=== PATIENT | female | born 2000 | race Caucasian/White ===

== ENCOUNTER 2021-07-09 05:25 | Emergency (ER) | payer SELFPAY ==
--- OUTSIDE RECORDS SUMMARY | 2021-07-09 05:28 | XMS REPORT | Continuity of Care Document ---
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 gt [facility]2020-10-11 22:54:00 Test Item Value Reference Range Interpretation Comments Glucose Lvl (test code = Glucose Lvl) 88 70-99 [place] [id number] 22:54:00 Test Item Value Reference Range Interpretation Comments BUN (test code = BUN) 9 7-22 [place] [id number] 22:54:00 Test Item Value Reference Range Interpretation Comments Creatinine Lvl (test code = Creatinine 0.84 0.50-1.40 Lvl) [facility]2020-10-11 22:54:00 Test Item Value Reference Range Interpretation Comments Sodium Lvl (test code = Sodium Lvl) 136 135-145 [facility]2020-10-11 22:54:00 Test Item Value Reference Range Interpretation Comments Potassium Lvl (test code = Potassium 3.7 3.5-5.1 Lvl) [facility]2020-10-11 22:54:00 Test Item Value Reference Range Interpretation Comments Chloride Lvl (test code = Chloride Lvl) 107 95-109 [facility]2020-10-11 22:54:00 Test Item Value Reference Range Interpretation Comments CO2 (test code = CO2) 24 24-32 [facility]2020-10-11 22:54:00 Test Item Value Reference Range Interpretation Comments Calcium Lvl (test code = Calcium Lvl) 9.8 8.5-10.5 [facility]
[2021-07-09 06:26] LABS: Urine Glucose Negative (Negative); Urine Specific Gravity >=1.030 (1.005-1.030)
[2021-07-09 06:27] LABS: Urine Blood Negative (Negative); Urine Protein Negative (Negative)
[2021-07-09 06:51] LABS: SARS-COV-2 RT PCR NEGATIVE (NEGATIVE)
--- NOTE | 2021-07-09 07:25 | EDPHYS ---
Physician Documentation [facility] Name: Romelia Patel Age: 20 yrs Sex: Female : 2000 Arrival Date: 07/09/2021 Time: 05:27 Bed 8 Private MD: ED Physician Pepe Solis HPI: 07/09 07:17 This 20 yrs old Female presents to ER via Ambulatory with complaints of Sore Throat, kdr Fever. 07:17 The patient presents with sore throat, Patient also complains of a tender lesion in her kdr perineum. The patient describes throat pain as intermittent. Onset: The symptoms/episode began/occurred gradually, 1 week(s) ago. Severity of symptoms: At their worst the symptoms were mild, in the emergency department the symptoms are unchanged. Modifying factors: The symptoms are alleviated by nothing, the symptoms are aggravated by nothing. Associated signs and symptoms: The patient has no apparent associated signs or symptoms. The patient has not recently seen a physician. Patient is concerned that she may have been exposed to HPV or some other STD. Reports that a relationship her mother had which she subsequently evaluated (her mother had a lesion on her back) as given her concern for possible genital HPV. Patient is sexually active and is also concerned that this may be something that was transmitted to her via her boyfriend. In any case the patient is concerned that she may have an STD or some other patient.. Historical: - Allergies: 06:00 No Known Allergies; kd3 - Home Meds: 06:00 None [Active]; kd3 - PMHx: 06:00 None; kd3 - PSHx: 06:00 None; kd3 - Immunization history:: Adult Immunizations not up to date, Client reports having NOT received the Covid vaccine. Flu vaccine is not up to date. - Social history:: Smoking status: unknown. ROS: 07:17 Constitutional: Negative for fever, chills, and weight loss, Eyes: Negative for injury, kdr pain, redness, and discharge, Neck: Negative for injury, pain, and swelling, Cardiovascular: Negative for chest pain, palpitations, and edema, Respiratory: Negative for shortness of breath, cough, wheezing, and pleuritic chest pain, Abdomen/GI: Negative for abdominal pain, nausea, vomiting, diarrhea, and constipation, Back: Negative for injury and pain, : Negative for injury, bleeding, discharge, and swelling, MS/Extremity: Negative for injury and deformity, Neuro: Negative for headache, weakness, numbness, tingling, and seizure activity. Psych: Negative for depression, anxiety, suicide ideation, homicidal ideation, and hallucinations, Allergy/Immunology: Negative for hives, rash, and allergies, Endocrine: Negative for neck swelling, polydipsia, polyuria, polyphagia, and marked weight changes, Hematologic/Lymphatic: Negative for swollen nodes, abnormal bleeding, and unusual bruising. 07:17 ENT: Positive for difficulty swallowing, Negative for injury or acute deformity, Gum pain hearing loss, pulling at ears, Teeth pain tinnitus, rhinorrhea, sinus congestion. 07:17 Skin: Positive for A lesion in her labial/perineum area. Exam: 07:17 Constitutional: This is a well developed, well nourished patient who is awake, alert, kdr and in no acute distress. Head/Face: Normocephalic, atraumatic. Eyes: Pupils equal round and reactive to light, extra-ocular motions intact. Lids and lashes normal. Conjunctiva and sclera are non-icteric and not injected. Cornea within normal limits. Periorbital areas with no swelling, redness, or edema. Neck: Trachea midline, no thyromegaly or masses palpated, and no cervical lymphadenopathy. Supple, full range of motion without nuchal rigidity, or vertebral point tenderness. No Meningismus. Chest/axilla: Normal chest wall appearance and motion. Nontender with no deformity. No lesions are appreciated. Cardiovascular: Regular rate and rhythm with a normal S1 and S2. No gallops, murmurs, or rubs. Normal PMI, no JVD. No pulse deficits. Respiratory: Lungs have equal breath sounds bilaterally, clear to auscultation and percussion. No rales, rhonchi or wheezes noted. No increased work of breathing, no retractions or nasal flaring. Abdomen/GI: Soft, non-tender, with normal bowel sounds. No distension or tympany. No guarding or rebound. No evidence of tenderness throughout. Back: No spinal tenderness. No costovertebral tenderness. Full range of motion. MS/ Extremity: Pulses equal, no cyanosis. Neurovascular intact. Full, normal range of motion. Neuro: Awake and alert, GCS 15, oriented to person, place, time, and situation. Cranial nerves II-XII grossly intact. Motor strength 5/5 in all extremities. Sensory grossly intact. Cerebellar exam normal. Normal gait. Psych: Awake, alert, with orientation to person, place and time. Behavior, mood, and affect are within normal limits. 07:17 : Pelvic Exam: External exam: no appreciated Bartholin's cyst, no erythema, not excoriated, no evidence of foreign body, no lesions, no ulcerations, no warts seen, There is a small raised lesion that is suspected to be folliculitis. Otherwise there is no other lesion of concern. The speculum exam did not reveal any significant fluid collection or foul-smelling discharge. The patient tolerated well. Vital Signs: 05:55 BP 106 / 59; Pulse 89; Resp 16; Temp 98.5; Pulse Ox 100% on R/A; Weight 58.51 kg; kd3 Height 5 ft. 3 in. (160.02 cm); Pain 0/10; 05:55 Body Mass Index 22.85 (58.51 kg, 160.02 cm) kd3 MDM: 07:17 Data reviewed: vital signs, nurses notes, lab test result(s). Counseling: I had a kdr detailed discussion with the patient and/or guardian regarding: the historical points, exam findings, and any diagnostic results supporting the discharge/admit diagnosis, lab results, the need for outpatient follow up. 07:25 Patient medically screened. kdr 07/09 05:42 Order name: COVID-19/FLU A+B (Document "Date of Onset" if Symptomatic); Complete Time: vc1 07:19 07/09 05:42 Order name: Strep; Complete Time: 07:19 vc1 07/09 06:24 Order name: Throat Culture EDTX 07/09 06:25 Order name: Urine --Ancillary (enter results) cs9 07/09 06:27 Order name: Urine Dipstick-Ancillary; Complete Time: 07:19 EDMS 07/09 06:49 Order name: GC (GONORR/CHLAMYDIA) Probe vc1 07/09 06:49 Order name: Wet Prep vc1 Administered Medications: No medications were administered Disposition Summary: 07/09/21 07:25 Discharge Ordered Location: Home kdr Problem: new kdr Symptoms: have improved kdr Condition: Stable kdr Diagnosis - Pseudofolliculitis barbae kdr - Acute laryngopharyngitis kdr - Viral infection, unspecified kdr Followup: kdr - With: Private Physician - When: 2 - 3 days - Reason: If symptoms return, Further diagnostic work-up, Recheck today's complaints, Continuance of care, Re-evaluation by your physician Discharge Instructions: - Discharge Summary Sheet kdr - Pharyngitis kdr - Ingrown Hair kdr - Viral Respiratory Infection, [id number] kdr - Sore Throat, [id number] kdr Forms: - Medication Reconciliation Form kdr - Thank You Letter kdr Prescriptions: - Ibuprofen 600 mg Oral Tablet - take 1 tablet by ORAL route every 6 hours As needed take with food; 30 tablet; kdr Refills: 0, Product Selection Permitted Signatures: Dispatcher [employer] EDMS Pepe Solis MD MD kdr Bernardo Gaitan DO DO ms3 Deborah Perez, RN RN kd3
--- NOTE | 2021-07-09 07:25 | ER ---
Nurse's Notes [facility] Name: Romelia Patel Age: 20 yrs Sex: Female : 2000 Arrival Date: 07/09/2021 Time: 05:27 Bed 8 Private MD: Diagnosis: Pseudofolliculitis barbae;Acute laryngopharyngitis;Viral infection, unspecified Presentation: 07/09 05:55 Chief complaint: Patient states: pt states that she has a bump on her genital area. it kd3 is not open or blistered. 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 pt also states she has had nausea and fever with a sore throat starting 4 days ago. Coronavirus screen: Vaccine status: Patient reports being unvaccinated. Ebola Screen: No symptoms or risks identified at this time. Initial Sepsis Screen: Does the patient meet any 2 criteria? No. Patient's initial sepsis screen is negative. Does the patient have a suspected source of infection? No. Patient's initial sepsis screen is negative. Risk Assessment: Do you want to hurt yourself or someone else? Patient reports no desire to harm self or others. Onset of symptoms was July 06, 2021. 05:55 Method Of Arrival: Ambulatory kd3 05:55 Acuity: OC 3 kd3 Triage Assessment: 06:00 General: Appears in no apparent distress. Behavior is calm, cooperative. Pain: Denies kd3 pain. EENT: Reports pain in throat. Neuro: Level of Consciousness is awake, alert, obeys commands, Oriented to person, place, time, situation. Cardiovascular: Patient's skin is warm and dry. Historical: - Allergies: 06:00 No Known Allergies; kd3 - Home Meds: 06:00 None [Active]; kd3 - PMHx: 06:00 None; kd3 - PSHx: 06:00 None; kd3 - Immunization history:: Adult Immunizations not up to date, Client reports having NOT received the Covid vaccine. Flu vaccine is not up to date. - Social history:: Smoking status: unknown. Screenin:01 Abuse screen: Denies threats or abuse. Denies injuries from another. Nutritional kd3 screening: No deficits noted. Tuberculosis screening: No symptoms or risk factors identified. Fall Risk None identified. Assessment: 06:01 Respiratory: Airway is patent Respiratory effort is even, unlabored, Breath sounds are kd3 clear bilaterally. 06:21 General: Appears in no apparent distress. comfortable, Behavior is calm, cooperative. lg3 Neuro: No deficits noted. Level of Consciousness is awake, alert, obeys commands, Oriented to person, place, time, situation. Cardiovascular: No deficits noted. Capillary refill < 3 seconds Clubbing of nail beds is absent JVD is absent Patient's skin is warm and dry. Respiratory: No deficits noted. Airway is patent Trachea midline Respiratory effort is even, unlabored, Respiratory pattern is regular, symmetrical. GI: No deficits noted. No signs and/or symptoms were reported involving the gastrointestinal system. : No deficits noted. No signs and/or symptoms were reported regarding the genitourinary system. EENT: No deficits noted. No signs and/or symptoms were reported regarding the EENT system. Throat is clear. Derm: Reports raised bump on genital. Musculoskeletal: No deficits noted. No signs and/or symptoms reported regarding the musculoskeletal system. Circulation, motion, and sensation intact. Range of motion: intact in all extremities. 07:21 Reassessment: Pt refusing vaginal wet prep swab, requesting to be discharged, reports jl7 she can diagnose BV by herself, ERD notified. Vital Signs: 05:55 BP 106 / 59; Pulse 89; Resp 16; Temp 98.5; Pulse Ox 100% on R/A; Weight 58.51 kg; kd3 Height 5 ft. 3 in. (160.02 cm); Pain 0/10; 05:55 Body Mass Index 22.85 (58.51 kg, 160.02 cm) kd3 ED Course: 05:27 Patient arrived in ED. kz 05:41 Kevon Neri, JULIANA is Primary Nurse. ke1 05:43 Pepe Solis MD is Attending Physician. kdr 06:00 Triage completed. kd3 06:01 Patient has correct armband on for positive identification. kd3 06:23 Arm band placed on. lg3 06:50 Wet Prep Sent. kd3 06:50 GC (GONORR/CHLAMYDIA) Probe Sent. kd3 06:50 Throat Culture Sent. kd3 06:50 COVID-19/FLU A+B (Document "Date of Onset" if Symptomatic) Sent. kd3 07:35 previous shift chaperoned attending physician during pelvic exam. Patient did not have jl7 IV access during this emergency room visit. Administered Medications: No medications were administered Outcome: 07:25 Discharge ordered by . kdr 07:37 Discharged to home ambulatory. jl7 07:37 Condition: stable 07:37 Discharge instructions given to patient, Instructed on discharge instructions, follow up and referral plans. medication usage, Demonstrated understanding of instructions, follow-up care, medications, Prescriptions given X 1. 07:38 Patient left the ED. jl7 Signatures: Pepe Solis MD MD kdr Leal, Jahala, RN RN jl7 Lelo Price RN RN lg3 Deborah Perez RN RN kd3 Kevon Neri RN RN ke1 Anamika Ashley
[2021-07-09 12:42] VITALS: BP 106/59; TEMP 98.5; O2SAT 100
[2021-07-13 17:02] LABS: C.trachomatis RNA,TMA Not Detected (Not Detected)
== END 2021-07-09 07:38 | disposition home or self-care (01) ==
LOC: ER 05:25
DX: J06.0 Acute laryngopharyngitis (principal); B34.9 Viral infection, unspecified; L73.1 Pseudofolliculitis barbae; Z20.822 Contact with and (suspected) exposure to COVID-19
CPT/HCPCS: 0240U; 81003; 81025; 87070; 87081; 87490; 87590; 99283

== ENCOUNTER 2021-07-12 16:06 | Emergency (ER) | payer SELFPAY ==
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
--- NOTE | 2021-07-12 19:44 | ER ---
Nurse's Notes [facility] Name: Romelia Patel Age: 20 yrs Sex: Female : 2000 Arrival Date: 07/12/2021 Time: 16:10 Bed Waiting Private MD: Diagnosis: Abdominal pain, unspecified Presentation: 07/12 16:39 Chief complaint: Patient states: N/V, lower abdominal pain, change in consistency of ph vaginal d/c, menstrual cycle is approx 3 days late, took UPT at home that was negative. Coronavirus screen: Vaccine status: Patient reports being unvaccinated. Ebola Screen: No symptoms or risks identified at this time. Initial Sepsis Screen: Does the patient meet any 2 criteria? No. Patient's initial sepsis screen is negative. Does the patient have a suspected source of infection? No. Patient's initial sepsis screen is negative. Risk Assessment: Do you want to hurt yourself or someone else? Patient reports no desire to harm self or others. 16:39 Method Of Arrival: Ambulatory ph 16:39 Acuity: OC 3 ph 16:39 Onset of symptoms was July 12, 2021. ph Triage Assessment: 16:45 General: Appears in no apparent distress. comfortable, slender, well groomed, Behavior ph is calm, cooperative, appropriate for age, Denies fever, feeling ill. Pain: Complains of pain in suprapubic area. Neuro: Level of Consciousness is awake, alert, obeys commands, Oriented to person, place, time, situation. Respiratory: Airway is patent Respiratory effort is even, unlabored. GI: Reports lower abdominal pain, nausea, vomiting. : Reports discharge, white, pain in suprapubic area. Derm: Skin is intact, is healthy with good turgor, Skin is pink, warm \T\ dry. Musculoskeletal: Circulation, motion, and sensation intact. Range of motion: intact in all extremities. Historical: - Allergies: 16:41 No Known Allergies; ph - PMHx: 16:41 None; ph - Immunization history:: Adult Immunizations unknown. - Social history:: Smoking status: Patient denies any tobacco usage or history of. Patient uses street drugs, marijuana. Screenin:45 Abuse screen: Denies threats or abuse. Denies injuries from another. Nutritional ph screening: No deficits noted. Tuberculosis screening: No symptoms or risk factors identified. Fall Risk None identified. Vital Signs: 16:39 BP 126 / 71; Pulse 78; Resp 18; Temp 98.0; Pulse Ox 99% on R/A; Weight 56.7 kg; Height ph 5 ft. 3 in. (160.02 cm); 16:39 Body Mass Index 22.14 (56.70 kg, 160.02 cm) ph ED Course: 16:10 Patient arrived in ED. ds1 16:41 Triage completed. ph 16:41 Arm band placed on Patient placed in waiting room, Patient notified of wait time. ph 16:53 Gaurav Felix NP is PHCP. pm1 16:53 Bernardo Gaitan DO is Attending Physician. pm1 17:37 Test, Serum Sent. mb7 17:37 Initial lab(s) drawn, by ct, sent to lab. mb7 17:38 Patient's name was called from ER lobby. No response. ph 17:40 Reji Vega, JULIANA is Primary Nurse. ll1 18:39 Patient's name was called from ER lobby. No response. ph 19:07 Patient's name was called from ER lobby. No response. ph 19:37 Patient's name was called from ER lobby. No response. ph 20:13 No provider procedures requiring assistance completed. Patient did not have IV access ph during this emergency room visit. Administered Medications: 20:15 Not Given (Patient Eloped): NS 0.9% 1000 ml IV at 1 bolus Per protocol; 1000 mL bolus ph 20:15 Not Given (Patient Eloped): Ketorolac 30 mg IVP once ph Outcome: 19:43 Discharge ordered by . pm1 20:14 Discharged to home pt left before receiving further testing or d/c instructions ph 20:14 Condition: good 20:15 Patient left the ED. ph Signatures: Kelly Mcguire ds1 Mis Mcdowell RN RN Gaurav Felix NP [employer]NE[employer] DECORATOR pm1 Reji Vega RN RN [facility] Brittanie Ferrer mb7
--- NOTE | 2021-07-12 19:44 | EDPHYS ---
Physician Documentation [facility] Name: Romelia Patel Age: 20 yrs Sex: Female : 2000 Arrival Date: 07/12/2021 Time: 16:10 Bed Waiting Private MD: ED Physician Bernardo Gaitan HPI: 07/12 16:55 This 20 yrs old Female presents to ER via Ambulatory with complaints of Abdominal pm1 Cramping - Ovarian Pain. 16:55 The patient presents with a desire for a test, Patient is concerned that she pm1 did not have her cycle. Patient tracks her cycles and expected her first day of her menses to start 2 days ago. Patient is presenting to the ER with a request for a serum test.. Onset: The symptoms/episode began/occurred 2 day(s) ago. Modifying factors: The symptoms are alleviated by nothing, the symptoms are aggravated by nothing. Associated signs and symptoms: Pertinent positives: Abdominal cramping, Pertinent negatives: diarrhea, dysuria, fever, nausea, vomiting. Severity of symptoms: in the emergency department the symptoms are unchanged. The patient is sexually active, reportedly has a single partner, Unprotected sex approximately 1 week ago. The patient's method of control includes nothing. The patient has not recently seen a physician. Historical: - Allergies: 16:41 No Known Allergies; ph - PMHx: 16:41 None; ph - Immunization history:: Adult Immunizations unknown. - Social history:: Smoking status: Patient denies any tobacco usage or history of. Patient uses street drugs, marijuana. ROS: 16:55 Positive for missed period, Negative for urinary symptoms, flank pain. pm1 16:55 Constitutional: Negative for fever, chills, and weight loss, Cardiovascular: Negative for chest pain, palpitations, and edema, Respiratory: Negative for shortness of breath, cough, wheezing, and pleuritic chest pain. 16:55 Back: Negative for injury and pain, MS/Extremity: Negative for injury and deformity, Skin: Negative for injury, rash, and discoloration, Neuro: Negative for headache, weakness, numbness, tingling, and seizure. 16:55 Abdomen/GI: Positive for abdominal cramps, of the suprapubic area. 16:55 All other systems are negative. Exam: 16:55 Constitutional: This is a well developed, well nourished patient who is awake, alert, pm1 and in no acute distress. Head/Face: Normocephalic, atraumatic. 16:55 Skin: Warm, dry with normal turgor. Normal color with no rashes, no lesions, and no evidence of cellulitis. MS/ Extremity: Pulses equal, no cyanosis. Neurovascular intact. Full, normal range of motion. 16:55 Cardiovascular: Exam negative for acute changes, Rate: normal, Rhythm: regular, Pulses: no pulse deficits are appreciated. 16:55 Respiratory: Exam negative for acute changes, respiratory distress, shortness of breath. 16:55 Neuro: Exam negative for acute changes, Orientation: is normal, Mentation: is normal, Motor: is normal, moves all fours, Gait: is steady, at a normal pace, without difficulty. Vital Signs: 16:39 BP 126 / 71; Pulse 78; Resp 18; Temp 98.0; Pulse Ox 99% on R/A; Weight 56.7 kg; Height ph 5 ft. 3 in. (160.02 cm); 16:39 Body Mass Index 22.14 (56.70 kg, 160.02 cm) ph MDM: 16:55 Patient medically screened. pm1 19:41 Data reviewed: vital signs. Data interpreted: Pulse oximetry: on room air is 99 %. pm1 Interpretation: normal. 19:41 ED course: Patient left from the ER waiting room after discussing her serum pm1 test. 04 16:55 Order name: Test, Serum; Complete Time: 18:12 pm1 07/12 18:33 Order name: Labs collected and sent; Complete Time: 20:15 pm1 07/12 18:33 Order name: Urine Dipstick-Ancillary (obtain specimen); Complete Time: 20:15 pm1 Administered Medications: 20:15 Not Given (Patient Eloped): NS 0.9% 1000 ml IV at 1 bolus Per protocol; 1000 mL bolus ph 20:15 Not Given (Patient Eloped): Ketorolac 30 mg IVP once ph Disposition: 21:39 Co-signature as Attending Physician, Bernardo CAIN was immediately available on-site ms3 in the Emergency Department for consultation in the care of the patient.. Disposition Summary: 07/12/21 19:43 Discharge Ordered Location: Home pm1 Problem: new pm1 Symptoms: have improved pm1 Condition: Stable pm1 Diagnosis - Abdominal pain, unspecified pm1 Followup: pm1 - With: Emergency Department - When: As needed - Reason: Worsening of condition Followup: pm1 - With: Private Physician - When: 2 - 3 days - Reason: Recheck today's complaints, Continuance of care, Re-evaluation by your physician Discharge Instructions: - Discharge Summary Sheet pm1 - Abdominal Pain, Adult pm1 Forms: - Medication Reconciliation Form pm1 - Thank You Letter pm1 - Antibiotic Education pm1 - Prescription Opioid Use pm1 Signatures: Dispatcher [employer] EDMS Mis Mcdowell RN RN ph Gaurav Felix NP [employer] INSURANCE SPECIALIST pm1 Bernardo Gaitan DO DO ms3 Corrections: (The following items were deleted from the chart) 20:15 18:33 IV Saline Lock ordered. pm1 ph
[2021-07-13 02:23] VITALS: BP 126/71; TEMP 98; O2SAT 99
== END 2021-07-12 20:15 | disposition home or self-care (01) ==
LOC: ER 16:06
DX: R10.9 Unspecified abdominal pain (principal)
CPT/HCPCS: 36415; 84703; 99282